=== PATIENT | female | born 1985 | race Caucasian/White ===

== ENCOUNTER → 2016-03-23 | Outpatient (CLI) | payer OTHER ==
[2016-03-23 16:34] VITALS: BP 122/80
== END ==
LOC: MHUC 12:06
PROVIDERS: ATTEND Physician Assistant
DX: J01.00 Acute maxillary sinusitis, unspecified (principal); H66.002 Acute suppurative otitis media without spontaneous rupture of ear drum, left ear
CPT/HCPCS: 99213